=== PATIENT | female | born 1985 | race Caucasian/White ===

== ENCOUNTER 2025-01-21 10:40 | Day surgery (SDC) | payer MEDICAID, SELFPAY ==
[2025-01-16 09:58] LABS: Basophils Percent Auto 0.8 % (0.0-3.0); Hematocrit 37.8 % (33.0-51.0); Hemoglobin* 12.4 gm/dL (12.0-16.0); Lymphocytes Percent Auto 40.9 % (20-44); Mean Corpuscular HGB Conc 33 gm/dL (32-36); Mean Corpuscular Hemoglobin 31 pg (26-34); Mean Corpuscular Volume 93 fL (80-100); Monocytes Percent Auto 7.8 % (0.0-11.0); Neutrophils Percent Auto 46.5 % (42.0-72.0); Platelet Count* 280 K/uL (140-440); RDW Coefficient of Variation % 11.8 % (11.5-15.5); Red Blood Count 4.05 m/uL (4.00-5.20); White Blood Count* 3.72 K/uL (4.50-11.00)
[2025-01-16 10:01] LABS: Slide Review Reflex No
[2025-01-16 10:11] LABS: Albumin* 5.1 g/dL (3.3-5.0); Chloride* 101 mmol/L (96-114); Potassium* 4.3 mmol/L (3.6-5.1); Sodium* 138 mmol/L (135-149)
[2025-01-16 10:14] LABS: Alanine Aminotransferase* 23 U/L (4-35); Alkaline Phosphatase* 42 U/L (40-150); Anion Gap 10 mEq/L (7-15); Aspartate Amino Transferase* 29 U/L (12-35); Bilirubin Total* 0.6 mg/dL (0.1-1.5); Blood Urea Nitrogen* 14 mg/dL (5-24); Calcium* 9.9 mg/dL (8.4-10.6); Carbon Dioxide* 27 mmol/L (20-32); Creatinine* 0.7 mg/dL (0.5-1.5); Estimated Glomerular Filt Rate 114 ml/min; Glucose* 116 mg/dL (60-115); Total Protein* 7.8 g/dL (6.0-8.3)
[2025-01-18 00:06] LABS: Cancer Antigen 125 24 U/mL (<=38)
[2025-01-21] MEDS: LACTATED RINGERS 1000 ML 1,000 ML 100 ML IV (10:55)
[2025-01-21 11:01] VITALS: BMI 19.3
[2025-01-21 11:10] VITALS: BP 119/89; PULSE 61; RESP 16; TEMP 37.1; O2SAT 99
[2025-01-21] MEDS: SODIUM CHLORIDE 0.9 % (FLUSH) 10 ML SYRINGE IVF (11:15)
--- NOTE | 2025-01-21 11:23 | P.ANES_ITS ---
Anesthesia Charges Start Date/Time Anesthesia Start Date: 01/21/25 Anesthesia Start Time: 13:36 Stop Date/Time Anesthesia Stop Date: 01/21/25 Anesthesia Stop Time: 14:57 Coding CPT Codes CPT Codes: ANESTH VASCULAR ACCESS - 81149 ([id number]) P2 - PATIENT W/MILD SYST DISEASE, QK - STULL HEWER 2-4 CNCRNT ANES PROC, QX - FORMING MACHINE ADJUSTER SVC W/ MD MED DIRECTION
--- NOTE | 2025-01-21 11:23 | W.ANESCHARGE ---
Anesthesia Charges Start Date/Time Anesthesia Start Date: 01/21/25 Anesthesia Start Time: 13:36 Stop Date/Time Anesthesia Stop Date: 01/21/25 Anesthesia Stop Time: 14:57 Coding CPT Codes CPT Codes: ANESTH VASCULAR ACCESS - 44469 ([id number]) P2 - PATIENT W/MILD SYST DISEASE, QK - CAR BODY MECHANIC 2-4 CNCRNT ANES PROC, QX - OFFICE MAIL CLERK SVC W/ MD MED DIRECTION
--- NOTE | 2025-01-21 12:00 | CRLHL7_ITS ---
For Patients: As a result of the Century Cures Act, medical imaging exams and procedure reports are released immediately into your electronic medical record. You may view this report before your referring provider. If you have questions, please contact your health care provider. Indication: Aura Cath Placement Technique: Two fluoroscopic images of the chest submitted. Fluoroscopic time 44.8 seconds. IMPRESSION: Fluoroscopic guidance for Port-A-Cath placement. Dictated by Solo Rasheed MD @ 01/21/2025 3:47:05 PM (Electronically Signed)
--- NOTE | 2025-01-21 13:38 | P.GSCN_ITS ---
History of Present Illness Consult details Date Seen: 01/21/25 Consult date: 01/21/25 Narrative: Vickie Is a 39-year-old female who presents to today for port placement. She was diagnosed with ovarian cancer in October of 2023. 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 She underwent a fertility sparing staging operation in January of 2024 and had positive cytology. She did not undergo adjuvant chemotherapy however was found on BP imaging to have recurrent disease with use abdominal scrub. She underwent cytoreductive surgery on 12/18/2024. Adjuvant chemotherapy was recommended. She has never had a port before. She has no neck pain or difficulty with range of motion. 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 She does not smoke. Smoking Status: Never smoker How often do you have a drink containing alcohol: monthly or less AUDIT-C Alcohol total score: 1 Meds Home Medications and Allergies Home Medications ?Medication ?Instructions ?Recorded ?Confirmed ?Type acetaminophen 500 mg tablet 1,000 mg PO Q6H PRN 01/11/25 01/11/25 History (Tylenol Extra Strength) apixaban 5 mg (74 tabs) tablets in See Rx Instructions PO PER PKG DIR 01/11/25 01/21/25 History a dose pack (Eliquis DVT-PE Treat 30D Start) docusate sodium 100 mg capsule 100 mg PO QDAY 01/11/25 01/11/25 History (Stool Softener) fluoxetine 10 mg capsule (Prozac) 10 mg PO QDAY 01/11/25 01/21/25 History hydromorphone 4 mg tablet mg PO PRN 01/11/25 01/11/25 History ibuprofen 600 mg tablet 600 mg PO Q8H PRN 01/11/25 01/11/25 History naltrexone 1.5 mg capsule (Naltrex) 3 mg PO .qd PRN 01/11/25 01/21/25 History olanzapine 2.5 mg tablet 2.5 mg PO QPM 01/11/25 01/21/25 History Allergies Allergy/AdvReac Type Severity Reaction Status Date / Time diphenhydramine (From AdvReac Intermediate Shakiness Verified 01/21/25 10:51 Benadryl) glucagon AdvReac Intermediate emesis Verified 01/21/25 10:51 Exam Narrative: Exam Narrative: General appearance: Alert, cooperative, and in no distress Eyes: PERRLA, eye lids clear, and sclera white HENT Head: Normocephalic Ears: External ears normal Pulmonary: Clear to auscultation bilaterally Cardiovascular Heart: Regular rate and rhythm Chest: No scars. Neurologic: No focal deficits Psychiatric: Alert, oriented, cooperative, normal affect. Const: Vital Signs, click to edit/add: Vital Signs - 24 hr 01/21/25 11:10 Temperature 98.8 F Pulse Rate 61 Respiratory Rate 16 Blood Pressure 119/89 Pulse Oximetry 99 Oxygen Delivery Me thod Room Air Results Labs Labs: All other labs normal. Imaging CT scan - chest: report reviewed and image reviewed Additional studies: CT chest report and images reviewed. No significant cardiopulmonary disease. Progress Note:A&P Assessment and plan (1) Ovarian cancer: Status: Acute Plan The patient is a 39-year-old female with stage IIIC ovarian cancer status post bilateral salpingo oophorectomy and hysterectomy as well as cytoreductive surgery. Port placement was requested for administration of chemotherapy. We discussed risks of the procedure including but not limited to bleeding, infection, port malfunction or thrombosis as well as pneumothorax. We also discussed recovery. She is agreeable to proceed.
[2025-01-21] MEDS: CEFAZOLIN 1 GM inj IVP (13:51)
[2025-01-21] MEDS: 0.9% SODIUM CHL 50 ML VIAL INJECTION ×2 (14:43→14:45)
[2025-01-21] MEDS: BUPIVACAINE 0.5% 30 ML INJECTION (14:43)
[2025-01-21] MEDS: LIDOCAINE 1% MDV 20 ML INJECTION (14:44)
[2025-01-21] MEDS: HEPARIN 500 UNIT/5 ML SYRINGE IVF (14:45)
[2025-01-21] MEDS: ACETAMINOPHEN 325 MG TABLET 650 MG PO (14:53)
--- NOTE | 2025-01-21 14:53 | CRLHL7_ITS ---
For Patients: As a result of the Century Cures Act, medical imaging exams and procedure reports are released immediately into your electronic medical record. You may view this report before your referring provider. If you have questions, please contact your health care provider. INDICATION: Status post port placement. TECHNIQUE: Chest 1 views. COMPARISON: None. FINDINGS/IMPRESSION: Right Yzmdln-T-Rjfo catheter tip projects over the cavoatrial junction. No focal consolidation, effusion or pneumothorax. Cardiac size is within normal limits. Dictated by Armand Nicole MD @ 01/21/2025 3:17:46 PM (Electronically Signed)
--- NOTE | 2025-01-21 14:54 | PM.GSPRC ---
Operative Note Date of procedure: 01/21/25 Pre-op diagnosis: Stage III right ovarian cancer Post-op diagnosis: Same Type of Procedure: Right internal jugular Port-A-Cath placement with ultrasound and fluoroscopic guidance Indications: The patient is a 39-year-old female with ovarian cancer, status post bilateral salpingo oophorectomy hysterectomy and debulking. A port was requested for administration of chemotherapy. After discussion of risks and benefits she has agreed to proceed. Procedure Description: After discussing the risks and benefits of the procedure, the patient signed informed consent.? The operative site was marked and the patient was brought to the operating room and placed on the operating table in supine position.? Care was taken to pad the patient's pressure points.?? The patient was then given sedation by anesthesia.?? The operative site was then prepped and draped in the usual sterile fashion.? A time-out was then performed. The patient is very small in habitus and so bilateral jugular veins were both noted to be small and very superficial. However, using ultrasound guidance, and after injecting local anesthetic into the skin and subcutaneous tissue overlying the vein I was able to easily access the right internal jugular vein. The wire would not thread after 2 attempts. Therefore, I obtained a Glidewire and was then able to easily thread this through the needle into the vein. This was confirmed with fluoroscopy demonstrating the wire in the IVC. Next, local anesthetic was injected into the skin below the clavicle and along the proposed tract to the neck incision. A skin incision was then made with a 15 blade and a pocket created in the subcutaneous tissue with cautery. A tunneler was then used to thread the catheter from the chest wall pocket to the neck incision. Once this was done fluoroscopy was brought into the field. Over the wire the tract was dilated using fluoroscopy. The wire and the dilator were then removed leaving the sheath in the vein. Through this, the catheter was threaded. Using fluoroscopy, the catheter was positioned into the distal SVC. The catheter was noted to flush and aspirate easily. The catheter was then connected to the port. The port was placed in the pocket and secured in place with 2 0 Prolene sutures. The skin was closed with absorbable suture. Sterile dressings were applied. The port was then accessed and again found to aspirate and flush easily. The port was left accessed for planned chemotherapy tomorrow and Tegaderm and a padded dressing was placed over top. Instrument sponge and needle counts were correct at the end of the case. The patient was woken and taken to the PACU in stable condition. The patient tolerated the procedure well. Findings: Right IJ power port placed in the low SVC. Anesthesia: MAC Surgeon: Suzanne Deras MD Estimated blood loss (mL): 10 Condition: stable Disposition: same day
[2025-01-21 14:57] VITALS: BP 116/77; PULSE 60; RESP 16; TEMP 36.3; O2SAT 100
--- NOTE | 2025-01-21 14:58 | P.ANES_ITS ---
Anesthesia Charges Start Date/Time Anesthesia Start Date: 01/21/25 Anesthesia Start Time: 13:36 Stop Date/Time Anesthesia Stop Date: 01/21/25 Anesthesia Stop Time: 14:57 Coding CPT Codes CPT Codes: ANESTH VASCULAR ACCESS - 43711 ([id number]) P2 - PATIENT W/MILD SYST DISEASE, QK - GLOBAL COMMODITY MANAGER 2-4 CNCRNT ANES PROC, QX - NETWORK SYSTEMS ANALYST SVC W/ MD MED DIRECTION
--- NOTE | 2025-01-21 14:58 | W.ANESCHARGE ---
Anesthesia Charges Start Date/Time Anesthesia Start Date: 01/21/25 Anesthesia Start Time: 13:36 Stop Date/Time Anesthesia Stop Date: 01/21/25 Anesthesia Stop Time: 14:57 Coding CPT Codes CPT Codes: ANESTH VASCULAR ACCESS - 85915 ([id number]) P2 - PATIENT W/MILD SYST DISEASE, QK - ORACLE SOFTWARE ENGINEER 2-4 CNCRNT ANES PROC, QX - MEDICAL DIRECTOR/HEAD TEAM PHYSICIAN SVC W/ MD MED DIRECTION
[2025-01-21 15:11] VITALS: BP 123/85; PULSE 67; RESP 16; O2SAT 99
[2025-01-21 15:30] VITALS: BP 125/80; PULSE 57; RESP 16; O2SAT 97
[2025-01-21 16:00] VITALS: BP 128/92; PULSE 64; RESP 16; TEMP 36.5; O2SAT 99
== END 2025-01-21 16:37 | disposition home or self-care (01) ==
PROVIDERS: Internal Medicine Hematology & Oncology; Visit Provider Surgery
PROC: (CPT 36561; principal; 2025-01-21 12:00)
DX: Z45.2 Encounter for adjustment and management of vascular access device (principal); C56.1 Malignant neoplasm of right ovary
CPT/HCPCS: 36561; 00532; 36415; 71045; 76000; 76998; 80053; 85025; 86304; J2003; A9270; C1769; C1788; J0665; J0690; J1642; J2250; J2704; J3010; J3490; J7120

== ENCOUNTER 2025-06-10 09:00 | Outpatient (RCR) | payer MEDICAID, SELFPAY ==
--- NOTE | 2025-01-15 13:20 | URNOTE ---
Per [facility], prior auth is not required for Carboplatin (J9045), Paclitaxel (J9267), Fosaprepitant (J1453), Palonosetron (J2469), Pegfilgrastim-cbqv (Q5111). Call ref #[id number]
--- NOTE | 2025-01-15 13:34 | ONC.NURNOTE ---
Usability Strategist left message on VM at home yesterday to call to set up next appts for chemo teaching and start date
--- NOTE | 2025-01-15 13:35 | ONC.NURNOTE ---
J[employer] forms were completed and faxed in yesterday Return email sent to Vickie with this follow up in the email it was also requested that she call the [facility] for follow up information on scheduling next appts
--- NOTE | 2025-01-16 13:45 | ONC.NURNOTE ---
90 minutes with patient, Layne reviewing possible side effects, self care at home, after hours management, treatment process,reviewed contents of the treatment binder discussed benadryl sensitivity with spinal, antiemetic support, emotional stress, hair loss, CIPN prevention patient is bringing in ice packs for taxol infusion plans to do neulasta day 2 with first cycle many questions and concerns discussed and questions addressed emla cream sent to pharmacy SS appt during first treatment consents signed and CECI signed
--- NOTE | 2025-01-16 13:50 | ONC.NURNOTE ---
PSDS =9 SS consult initiated many concerns reports high anxiety about treatment
[2025-01-22 08:46] VITALS: BP 111/74; PULSE 64; RESP 18; TEMP 36.7; O2SAT 100
[2025-01-22] MEDS: SODIUM CHLORIDE 0.9 % (FLUSH) 10 ML SYRINGE IVF ×2 (09:36→15:17)
[2025-01-22] MEDS: FAMOTIDINE 20 MG TABLET PO (09:38)
[2025-01-22] MEDS: dexAMETHasone 20 MG in 0.9 % SODIUM CHLORIDE 100 ml 100 ML 306 MG IVPB (09:43)
[2025-01-22] MEDS: FOSAPREPITANT 150 MG inj 150 MG in 0.9 % SODIUM CHLORIDE 250 ml 250 ML 510 MG IVPB (10:09)
--- NOTE | 2025-01-22 10:43 | PC.SOCIAL ---
Food And Beverage Assistant Manager Consult: SW met with patient and introduced self and role of supporting patient's around basic needs supports, including emotional support. Patient states that she is doing okay and main question was around transportation. Patient explains that she has transportation to the infusion center, but was wondering more about transportation options aside from that. SW discussed that there are options for using different agencies that SW could provide information for. Patient did not want this at this time. Patient did not express any concerns around any basic needs. SW inquired about housing and patient states last week there was stress around this, however, now she and the individuals that were causing the stress are working through it. Patient reports around her anxiety that she has been given a lot of information about different approaches, meditation, handy chi, medications, but hasn't chosen what she would like to do yet. Patient expresses that she doesn't know if there is anything she needs or will need support with. SW provided validation. SW provided contact information so that patient can reach out if any concerns or questions arise.
[2025-01-22] MEDS: [UNRECOGNIZED DRUG - OTHER] IVPB (11:21)
[2025-01-22] MEDS: IN LINE IVPB (11:21)
[2025-01-22] MEDS: PACLITAXEL IVPB (11:21)
[2025-01-22] MEDS: TUBING PRIMARY IVPB (11:21)
[2025-01-22] MEDS: MICRON FILTER SET IVPB (11:21)
[2025-01-22] MEDS: SODIUM CHLORIDE 0.9% IVPB (14:31)
[2025-01-22] MEDS: CARBOPLATIN IVPB (14:31)
[2025-01-22] MEDS: TUBING SECONDARY IVPB (14:31)
[2025-01-22] MEDS: HEPARIN 500 UNIT/5 ML SYRINGE IVF (15:17)
[2025-01-23 15:35] VITALS: BP 114/77; PULSE 70; RESP 16; TEMP 36.7; O2SAT 98
--- NOTE | 2025-01-24 13:08 | ONC.NURNOTE ---
Vickie phoned in with concerns regarding the following: -breakthrough nausea last night- no emesis- but did not eat dinner due to significant nausea and said she was on the floor last night with discomfort in abd ? related to constipation and or nausea Vickie took ondansetron last night (took every 6 hrs of prochlorperazine during the day), feels less nauseated at the time of this call currently she is alternating Compazine and ondansetron each every 6 hours (something at a 3 hour interval, with better control Vickie asks how many days to continue, discussed through 1-2 more days and then to try only as needed after Tuesday -reports constipation, with normal BM day of treatment, and only small BM today- has tried Senna, 2 yesterday and repeated one more last night, and MOM, with minimal results rec- take 2 more Senna now and ok to repeat 2 more at HS if no results and to call in am with follow up -reports a tingling in her throat noted while on a walk today- rec to watch and call with follow up tomorrow -remember to drink fluids to stay hydrated Plan: Vickie will call [facility] tomorrow to report follow up on control of nausea and management of diarrhea
[2025-02-12 08:13] LABS: Hematocrit* 32.6 % (33.0-51.0); Hemoglobin* 10.7 gm/dL (12.0-16.0); Immature Granulocytes Abs Auto 0.01 K/uL (0.00-0.30); Immature Granulocytes Pct Auto 0.1 %; Lymphocytes Absolute Auto 2.49 K/uL (0.90-2.90); Mean Corpuscular HGB Conc 33 gm/dL (32-36); Mean Corpuscular Hemoglobin 31 pg (26-34); Mean Corpuscular Volume 93 fL (80-100); RDW Coefficient of Variation % 12.8 % (11.5-15.5); Red Blood Count* 3.49 m/uL (4.00-5.20); White Blood Count* 6.95 K/uL (4.50-11.00)
[2025-02-12 08:16] LABS: Slide Review Reflex No
[2025-02-12 08:33] LABS: Albumin* 4.5 g/dL (3.3-5.0); Chloride* 105 mmol/L (96-114); Sodium* 139 mmol/L (135-149)
[2025-02-12 08:34] LABS: Potassium* 3.5 mmol/L (3.6-5.1)
[2025-02-12 08:36] LABS: Alanine Aminotransferase* 20 U/L (4-35); Alkaline Phosphatase* 54 U/L (40-150); Anion Gap 8 mEq/L (7-15); Aspartate Amino Transferase* 24 U/L (12-35); Bilirubin Total* 0.3 mg/dL (0.1-1.5); Blood Urea Nitrogen* 13 mg/dL (5-24); Calcium* 9.4 mg/dL (8.4-10.6); Carbon Dioxide* 26 mmol/L (20-32); Creatinine* 0.5 mg/dL (0.5-1.5); Est. Creatinine Clearance* 131.08; Estimated Glomerular Filt Rate 124 ml/min; Glucose* 107 mg/dL (60-115); Total Protein* 6.9 g/dL (6.0-8.3)
[2025-02-12] MEDS: FAMOTIDINE 20 MG TABLET PO (09:58)
[2025-02-12] MEDS: dexAMETHasone 20 MG in 0.9 % SODIUM CHLORIDE 100 ml 100 ML 306 MG IVPB (10:11)
[2025-02-12] MEDS: FOSAPREPITANT 150 MG inj 150 MG in 0.9 % SODIUM CHLORIDE 250 ml 250 ML 510 MG IVPB (10:38)
[2025-02-12] MEDS: [UNRECOGNIZED DRUG - OTHER] IVPB (11:15)
[2025-02-12] MEDS: TUBING PRIMARY IVPB (11:15)
[2025-02-12] MEDS: MICRON FILTER SET IVPB (11:15)
[2025-02-12] MEDS: IN LINE IVPB (11:15)
[2025-02-12] MEDS: PACLITAXEL IVPB (11:15)
--- NOTE | 2025-02-12 13:02 | ONC.NURNOTE ---
Carboplatin dose calculated to 949mg based on today's wt and creatinine. Discussed with Dr. Magdaleno, she would like to keep the Carboplatin dose at 715mg as ordered.
[2025-02-12] MEDS: TUBING SECONDARY IVPB (14:31)
[2025-02-12] MEDS: SODIUM CHLORIDE 0.9% IVPB (14:31)
[2025-02-12] MEDS: CARBOPLATIN IVPB (14:31)
[2025-02-13 14:05] VITALS: BP 129/77; PULSE 69; TEMP 36.3; O2SAT 98
[2025-02-13] MEDS: DEXAMETHASONE 10 MG/ML PF 8 MG IVP (14:20)
[2025-02-13] MEDS: SODIUM CHLORIDE 0.9 % (FLUSH) 10 ML SYRINGE IVF ×2 (14:20→15:23)
[2025-02-13] MEDS: HEPARIN 500 UNIT/5 ML SYRINGE IVF (15:23)
[2025-02-15 08:09] VITALS: BP 104/71; PULSE 82; RESP 14; TEMP 36.4; O2SAT 100
[2025-02-15] MEDS: HEPARIN 500 UNIT/5 ML SYRINGE IVF (08:33)
[2025-02-15] MEDS: DEXAMETHASONE 10 MG/ML PF 8 MG IVP (08:33)
[2025-02-15] MEDS: SODIUM CHLORIDE 0.9 % (FLUSH) 10 ML SYRINGE IVF (08:33)
[2025-03-05] MEDS: SODIUM CHLORIDE 0.9 % (FLUSH) 10 ML SYRINGE IVF ×2 (09:30→16:15)
[2025-03-05 09:31] LABS: Hematocrit* 31.8 % (33.0-51.0); Hemoglobin* 10.5 gm/dL (12.0-16.0); Immature Granulocytes Abs Auto 0.00 K/uL (0.00-0.30); Immature Granulocytes Pct Auto 0.0 %; Mean Corpuscular HGB Conc 33 gm/dL (32-36); Mean Corpuscular Hemoglobin 31 pg (26-34); Mean Corpuscular Volume 93 fL (80-100); RDW Coefficient of Variation % 14.8 % (11.5-15.5); Red Blood Count* 3.41 m/uL (4.00-5.20); White Blood Count* 4.81 K/uL (4.50-11.00)
[2025-03-05 09:39] LABS: Lymphocytes Absolute Auto 2.40 K/uL (0.90-2.90); Slide Review Reflex No
[2025-03-05 09:43] LABS: Albumin* 4.6 g/dL (3.3-5.0); Chloride* 105 mmol/L (96-114); Potassium* 3.5 mmol/L (3.6-5.1); Sodium* 138 mmol/L (135-149)
[2025-03-05 09:46] LABS: Alanine Aminotransferase* 22 U/L (4-35); Alkaline Phosphatase* 62 U/L (40-150); Anion Gap 7 mEq/L (7-15); Aspartate Amino Transferase* 27 U/L (12-35); Bilirubin Total* 0.3 mg/dL (0.1-1.5); Blood Urea Nitrogen* 8 mg/dL (5-24); Calcium* 9.7 mg/dL (8.4-10.6); Carbon Dioxide* 26 mmol/L (20-32); Creatinine* 0.5 mg/dL (0.5-1.5); Est. Creatinine Clearance* 131.38; Estimated Glomerular Filt Rate 124 ml/min; Glucose* 101 mg/dL (60-115); Total Protein* 7.1 g/dL (6.0-8.3)
[2025-03-05] MEDS: FAMOTIDINE 20 MG TABLET PO (11:01)
[2025-03-05] MEDS: dexAMETHasone 20 MG in 0.9 % SODIUM CHLORIDE 100 ml 100 ML 306 MG IVPB (11:23)
[2025-03-05] MEDS: FOSAPREPITANT 150 MG inj 150 MG in 0.9 % SODIUM CHLORIDE 250 ml 250 ML 700 MG IVPB (11:47)
[2025-03-05] MEDS: IN LINE IVPB (12:15)
[2025-03-05] MEDS: TUBING PRIMARY IVPB (12:15)
[2025-03-05] MEDS: [UNRECOGNIZED DRUG - OTHER] IVPB (12:15)
[2025-03-05] MEDS: PACLITAXEL IVPB (12:15)
[2025-03-05] MEDS: MICRON FILTER SET IVPB (12:15)
[2025-03-05] MEDS: SODIUM CHLORIDE 0.9% IVPB (15:37)
[2025-03-05] MEDS: TUBING SECONDARY IVPB (15:37)
[2025-03-05] MEDS: CARBOPLATIN IVPB (15:37)
[2025-03-05] MEDS: HEPARIN 500 UNIT/5 ML SYRINGE IVF (16:15)
[2025-03-06 14:04] VITALS: BP 118/75; PULSE 77; RESP 16; O2SAT 100
[2025-03-06] MEDS: DEXAMETHASONE 10 MG/ML PF 8 MG IVP (14:24)
[2025-03-06 15:21] VITALS: TEMP 36.6
[2025-03-06] MEDS: SODIUM CHLORIDE 0.9 % (FLUSH) 10 ML SYRINGE IVF (15:29)
[2025-03-06] MEDS: HEPARIN 500 UNIT/5 ML SYRINGE IVF (15:29)
[2025-03-08 08:08] VITALS: BP 113/56; PULSE 82; RESP 16; TEMP 36.2; O2SAT 98
[2025-03-08] MEDS: DEXAMETHASONE 10 MG/ML PF 8 MG IVP (08:20)
[2025-03-08] MEDS: SODIUM CHLORIDE 0.9 % (FLUSH) 10 ML SYRINGE IVF (09:22)
[2025-03-08] MEDS: HEPARIN 500 UNIT/5 ML SYRINGE IVF (09:22)
[2025-03-26 08:08] LABS: Hematocrit* 32.1 % (33.0-51.0); Hemoglobin* 10.5 gm/dL (12.0-16.0); Immature Granulocytes Pct Auto 0.2 %; Mean Corpuscular HGB Conc 33 gm/dL (32-36); Mean Corpuscular Hemoglobin 31 pg (26-34); Mean Corpuscular Volume 95 fL (80-100); RDW Coefficient of Variation % 15.4 % (11.5-15.5); Red Blood Count* 3.39 m/uL (4.00-5.20); White Blood Count* 4.44 K/uL (4.50-11.00)
[2025-03-26 08:13] LABS: Immature Granulocytes Abs Auto 0.00 K/uL (0.00-0.30); Lymphocytes Absolute Auto 2.40 K/uL (0.90-2.90); Slide Review Reflex No
[2025-03-26 08:21] LABS: Albumin* 4.4 g/dL (3.3-5.0); Chloride* 103 mmol/L (96-114)
[2025-03-26 08:22] LABS: Potassium* 3.7 mmol/L (3.6-5.1); Sodium* 136 mmol/L (135-149)
[2025-03-26 08:24] LABS: Alanine Aminotransferase* 22 U/L (4-35); Anion Gap 8 mEq/L (7-15); Aspartate Amino Transferase* 26 U/L (12-35); Blood Urea Nitrogen* 16 mg/dL (5-24); Carbon Dioxide* 25 mmol/L (20-32); Creatinine* 0.5 mg/dL (0.5-1.5); Est. Creatinine Clearance* 132.78; Estimated Glomerular Filt Rate 124 ml/min
[2025-03-26 08:25] LABS: Alkaline Phosphatase* 58 U/L (40-150); Bilirubin Total* 0.4 mg/dL (0.1-1.5); Calcium* 9.4 mg/dL (8.4-10.6); Glucose* 88 mg/dL (60-115); Total Protein* 6.8 g/dL (6.0-8.3)
[2025-03-26 08:57] VITALS: BP 106/75; PULSE 67; RESP 16; TEMP 36.4; O2SAT 100
[2025-03-26] MEDS: dexAMETHasone 20 MG in 0.9 % SODIUM CHLORIDE 100 ml 100 ML 306 MG IVPB (09:40)
[2025-03-26] MEDS: FAMOTIDINE 20 MG TABLET PO (09:40)
[2025-03-26] MEDS: FOSAPREPITANT 150 MG inj 150 MG in 0.9 % SODIUM CHLORIDE 250 ml 250 ML 510 MG IVPB (10:02)
[2025-03-26] MEDS: [UNRECOGNIZED DRUG - OTHER] IVPB (10:39)
[2025-03-26] MEDS: PACLITAXEL IVPB (10:39)
[2025-03-26] MEDS: MICRON FILTER SET IVPB (10:39)
[2025-03-26] MEDS: TUBING PRIMARY IVPB (10:39)
[2025-03-26] MEDS: IN LINE IVPB (10:39)
[2025-03-26] MEDS: TUBING SECONDARY IVPB (13:48)
[2025-03-26] MEDS: SODIUM CHLORIDE 0.9% IVPB (13:48)
[2025-03-26] MEDS: CARBOPLATIN IVPB (13:48)
[2025-03-26] MEDS: HEPARIN 500 UNIT/5 ML SYRINGE IVF (14:30)
[2025-03-26] MEDS: SODIUM CHLORIDE 0.9 % (FLUSH) 10 ML SYRINGE IVF (14:30)
[2025-03-27 14:10] VITALS: BP 109/69; PULSE 72; RESP 16; TEMP 37.3; O2SAT 99
[2025-03-27] MEDS: SODIUM CHLORIDE 0.9 % (FLUSH) 10 ML SYRINGE IVF ×2 (14:25→15:37)
[2025-03-27] MEDS: DEXAMETHASONE 10 MG/ML PF 8 MG IVP (14:27)
[2025-03-27] MEDS: HEPARIN 500 UNIT/5 ML SYRINGE IVF (15:37)
[2025-03-29 08:06] VITALS: BP 114/79; PULSE 66; RESP 16; TEMP 37.1; O2SAT 100
[2025-03-29] MEDS: DEXAMETHASONE 10 MG/ML PF 8 MG IVP (08:23)
[2025-03-29] MEDS: SODIUM CHLORIDE 0.9 % (FLUSH) 10 ML SYRINGE IVF ×2 (08:30→09:33)
[2025-03-29] MEDS: HEPARIN 500 UNIT/5 ML SYRINGE IVF (09:33)
[2025-04-15 08:12] LABS: Hematocrit* 32.6 % (33.0-51.0); Hemoglobin* 10.8 gm/dL (12.0-16.0); Immature Granulocytes Abs Auto 0.00 K/uL (0.00-0.30); Immature Granulocytes Pct Auto 0.0 %; Lymphocytes Absolute Auto 1.89 K/uL (0.90-2.90); Mean Corpuscular HGB Conc 33 gm/dL (32-36); Mean Corpuscular Hemoglobin 32 pg (26-34); Mean Corpuscular Volume 95 fL (80-100); RDW Coefficient of Variation % 15.5 % (11.5-15.5); Red Blood Count* 3.43 m/uL (4.00-5.20); White Blood Count* 5.77 K/uL (4.50-11.00)
[2025-04-15 08:16] LABS: Slide Review Reflex No
[2025-04-15 08:26] LABS: Albumin* 4.4 g/dL (3.3-5.0); Chloride* 105 mmol/L (96-114); Potassium* 3.9 mmol/L (3.6-5.1); Sodium* 136 mmol/L (135-149)
[2025-04-15 08:28] LABS: Alanine Aminotransferase* 14 U/L (4-35); Anion Gap 6 mEq/L (7-15); Aspartate Amino Transferase* 22 U/L (12-35); Bilirubin Total* 0.5 mg/dL (0.1-1.5); Blood Urea Nitrogen* 13 mg/dL (5-24); Carbon Dioxide* 25 mmol/L (20-32); Creatinine* 0.5 mg/dL (0.5-1.5); Est. Creatinine Clearance* 133.51; Estimated Glomerular Filt Rate 124 ml/min
[2025-04-15 08:29] LABS: Alkaline Phosphatase* 65 U/L (40-150); Calcium* 9.7 mg/dL (8.4-10.6); Glucose* 85 mg/dL (60-115); Total Protein* 7.1 g/dL (6.0-8.3)
[2025-04-15] MEDS: SODIUM CHLORIDE 0.9 % (FLUSH) 10 ML SYRINGE IVF ×2 (09:15→14:49)
[2025-04-15] MEDS: FAMOTIDINE 20 MG TABLET PO (09:41)
[2025-04-15] MEDS: dexAMETHasone 20 MG in 0.9 % SODIUM CHLORIDE 100 ml 100 ML 306 MG IVPB (09:42)
[2025-04-15] MEDS: FOSAPREPITANT 150 MG inj 150 MG in 0.9 % SODIUM CHLORIDE 250 ml 250 ML 510 MG IVPB (10:05)
[2025-04-15] MEDS: MICRON FILTER SET IVPB (10:42)
[2025-04-15] MEDS: TUBING PRIMARY IVPB (10:42)
[2025-04-15] MEDS: [UNRECOGNIZED DRUG - OTHER] IVPB (10:42)
[2025-04-15] MEDS: IN LINE IVPB (10:42)
[2025-04-15] MEDS: PACLITAXEL IVPB (10:42)
[2025-04-15] MEDS: TUBING SECONDARY IVPB (14:01)
[2025-04-15] MEDS: SODIUM CHLORIDE 0.9% IVPB (14:01)
[2025-04-15] MEDS: CARBOPLATIN IVPB (14:01)
[2025-04-15] MEDS: HEPARIN 500 UNIT/5 ML SYRINGE IVF (14:48)
[2025-04-16 14:06] VITALS: BP 120/74; PULSE 82; RESP 15; TEMP 36.9; O2SAT 99
[2025-04-16] MEDS: DEXAMETHASONE 10 MG/ML PF 8 MG IVP (14:22)
[2025-04-16] MEDS: HEPARIN 500 UNIT/5 ML SYRINGE IVF (15:28)
[2025-04-16] MEDS: SODIUM CHLORIDE 0.9 % (FLUSH) 10 ML SYRINGE IVF (15:28)
[2025-04-18 08:06] VITALS: BP 119/73; PULSE 71; RESP 15; TEMP 36.7; O2SAT 97
[2025-04-18] MEDS: DEXAMETHASONE 10 MG/ML PF 8 MG IVP (08:24)
[2025-04-18] MEDS: SODIUM CHLORIDE 0.9 % (FLUSH) 10 ML SYRINGE IVF ×2 (08:24→09:28)
[2025-04-18 09:28] VITALS: TEMP 36.9
[2025-04-18] MEDS: HEPARIN 500 UNIT/5 ML SYRINGE IVF (09:28)
--- NOTE | 2025-05-01 15:00 | ONC.NURNOTE ---
Forms completed per patient request for unemployment insurance. Completed forms emailed to Vickie with copy placed in patients chart.
[2025-05-06 09:26] LABS: Hematocrit* 31.1 % (33.0-51.0); Hemoglobin* 10.2 gm/dL (12.0-16.0); Immature Granulocytes Abs Auto 0.00 K/uL (0.00-0.30); Immature Granulocytes Pct Auto 0.0 %; Mean Corpuscular HGB Conc 33 gm/dL (32-36); Mean Corpuscular Hemoglobin 32 pg (26-34); Mean Corpuscular Volume 98 fL (80-100); RDW Coefficient of Variation % 15.5 % (11.5-15.5); Red Blood Count* 3.17 m/uL (4.00-5.20); White Blood Count* 3.45 K/uL (4.50-11.00)
[2025-05-06 09:37] LABS: Lymphocytes Absolute Auto 2.20 K/uL (0.90-2.90); Slide Review Reflex No
[2025-05-06 09:42] LABS: Albumin* 4.3 g/dL (3.3-5.0); Chloride* 105 mmol/L (96-114); Potassium* 3.8 mmol/L (3.6-5.1); Sodium* 137 mmol/L (135-149)
[2025-05-06 09:44] LABS: Blood Urea Nitrogen* 13 mg/dL (5-24); Creatinine* 0.5 mg/dL (0.5-1.5); Est. Creatinine Clearance* 134.49; Estimated Glomerular Filt Rate 124 ml/min
[2025-05-06 09:45] LABS: Alanine Aminotransferase* 16 U/L (4-35); Alkaline Phosphatase* 64 U/L (40-150); Anion Gap 6 mEq/L (7-15); Aspartate Amino Transferase* 33 U/L (12-35); Bilirubin Total* 0.2 mg/dL (0.1-1.5); Calcium* 9.4 mg/dL (8.4-10.6); Carbon Dioxide* 26 mmol/L (20-32); Glucose* 85 mg/dL (60-115); Total Protein* 6.7 g/dL (6.0-8.3)
[2025-05-06] MEDS: HEPARIN 500 UNIT/5 ML SYRINGE IVF (10:00)
[2025-05-06] MEDS: SODIUM CHLORIDE 0.9 % (FLUSH) 10 ML SYRINGE IVF (10:00)
[2025-05-08] MEDS: SODIUM CHLORIDE 0.9 % (FLUSH) 10 ML SYRINGE IVF ×2 (08:35→14:35)
[2025-05-08 08:47] LABS: Hematocrit* 32.5 % (33.0-51.0); Hemoglobin* 10.8 gm/dL (12.0-16.0); Immature Granulocytes Abs Auto 0.01 K/uL (0.00-0.30); Immature Granulocytes Pct Auto 0.2 %; Lymphocytes Absolute Auto 1.84 K/uL (0.90-2.90); Mean Corpuscular HGB Conc 33 gm/dL (32-36); Mean Corpuscular Hemoglobin 32 pg (26-34); Mean Corpuscular Volume 97 fL (80-100); RDW Coefficient of Variation % 14.8 % (11.5-15.5); Red Blood Count* 3.35 m/uL (4.00-5.20); White Blood Count* 5.55 K/uL (4.50-11.00)
[2025-05-08 08:52] LABS: Slide Review Reflex No
[2025-05-08 09:02] LABS: Albumin* 4.5 g/dL (3.3-5.0); Chloride* 103 mmol/L (96-114); Potassium* 4.0 mmol/L (3.6-5.1); Sodium* 137 mmol/L (135-149)
[2025-05-08 09:05] LABS: Alanine Aminotransferase* 18 U/L (4-35); Alkaline Phosphatase* 63 U/L (40-150); Anion Gap 7 mEq/L (7-15); Aspartate Amino Transferase* 23 U/L (12-35); Bilirubin Total* 0.2 mg/dL (0.1-1.5); Blood Urea Nitrogen* 16 mg/dL (5-24); Calcium* 9.8 mg/dL (8.4-10.6); Carbon Dioxide* 27 mmol/L (20-32); Creatinine* 0.5 mg/dL (0.5-1.5); Est. Creatinine Clearance* 134.49; Estimated Glomerular Filt Rate 124 ml/min; Glucose* 79 mg/dL (60-115); Total Protein* 7.0 g/dL (6.0-8.3)
[2025-05-08] MEDS: dexAMETHasone 20 MG in 0.9 % SODIUM CHLORIDE 100 ml 100 ML 306 MG IVPB (09:59)
[2025-05-08] MEDS: FAMOTIDINE 20 MG TABLET PO (09:59)
[2025-05-08] MEDS: FOSAPREPITANT 150 MG inj 150 MG in 0.9 % SODIUM CHLORIDE 250 ml 250 ML 510 MG IVPB (10:23)
[2025-05-08] MEDS: IN LINE IVPB (11:08)
[2025-05-08] MEDS: [UNRECOGNIZED DRUG - OTHER] IVPB (11:08)
[2025-05-08] MEDS: PACLITAXEL IVPB (11:08)
[2025-05-08] MEDS: MICRON FILTER SET IVPB (11:08)
[2025-05-08] MEDS: TUBING PRIMARY IVPB (11:08)
[2025-05-08] MEDS: CARBOPLATIN IVPB (13:57)
[2025-05-08] MEDS: TUBING SECONDARY IVPB (13:57)
[2025-05-08] MEDS: SODIUM CHLORIDE 0.9% IVPB (13:57)
[2025-05-08] MEDS: HEPARIN 500 UNIT/5 ML SYRINGE IVF (14:35)
[2025-05-09 12:06] VITALS: BP 120/73; PULSE 70; RESP 18; TEMP 37.5; O2SAT 100
[2025-05-09] MEDS: DEXAMETHASONE 10 MG/ML PF 8 MG IVP (12:19)
[2025-05-09] MEDS: HEPARIN 500 UNIT/5 ML SYRINGE IVF (13:08)
[2025-05-09] MEDS: SODIUM CHLORIDE 0.9 % (FLUSH) 10 ML SYRINGE IVF (13:08)
[2025-05-10 10:07] VITALS: BP 108/68; PULSE 75; RESP 16; TEMP 37; O2SAT 99
[2025-05-10] MEDS: SODIUM CHLORIDE 0.9 % (FLUSH) 10 ML SYRINGE IVF ×2 (11:24→12:10)
[2025-05-10] MEDS: DEXAMETHASONE 10 MG/ML PF 8 MG IVP (11:25)
[2025-05-10] MEDS: HEPARIN 500 UNIT/5 ML SYRINGE IVF (12:10)
--- NOTE | 2025-05-28 10:59 | W.ED.EKGINT ---
EKG Interpretation EKG Data Attestation: I personally reviewed and interpreted this ECG as follows: Date of EKG Tracin05/10/25 EKG interpretation date: 05/28/25 EKG interpretation time: 10:59 Prior EKG tracings: not available for review Interpretation: EKG is done for indication of palpitations, and also chemotherapeutic monitoring. No old EKG to compare to. Normal sinus rhythm with ventricular rate of 66, QRS is 86, QT 380, QTC is 398. Assessment : normal EKG, normal sinus rhythm with no acute changes.
== END 2025-07-10 23:59 | disposition home or self-care (01) ==
LOC: CCIC 09:00
PROVIDERS: Clinical Nurse Specialist; Internal Medicine Hematology & Oncology; Physician Assistant; Visit Provider Internal Medicine Hematology & Oncology
DX: C56.2 Malignant neoplasm of left ovary (principal); K59.00 Constipation, unspecified; R11.2 Nausea with vomiting, unspecified; T45.1X5A Adverse effect of antineoplastic and immunosuppressive drugs, initial encounter
CPT/HCPCS: 36415; 36591; 80053; 83735; 85025; 86304; 93005; 93010; 96360; 96361; 96367; 96372; 96374; 96375; 96413; 96415; 96417; 99202; 99205; 99211; 99213; 99214; 99215; G0463; A9270; J1100; J1453; J1642; J2469; J7030; J7050; J9045; J9267; Q5111